=== PATIENT | female | born 1950 | race Caucasian/White ===

== ENCOUNTER → 2017-07-10 | Outpatient (CLI) | payer OTHER ==
[~2017-07-10] VITALS: Ht 153.7 cm; Wt 60.0 kg
[~2017-07-10] MED LIST: CALCIUM 500 MG1 EACH PO; DITROPAN5 MG PO; VITAMIN D2000 UNI1 PO
[2017-07-10 16:00] VITALS: BP 121/77
== END | disposition home or self-care (01) ==
LOC: IVINF 15:45
DX: M81.0 Age-related osteoporosis without current pathological fracture (principal)
CPT/HCPCS: 96365; J3489

== ENCOUNTER → 2018-07-10 | Outpatient (CLI) | payer OTHER ==
[~2018-07-10] VITALS: Ht 154.9 cm; Wt 61.2 kg
[2018-07-10 07:25] VITALS: BP 131/73
== END | disposition home or self-care (01) ==
LOC: IVINF 06-18 15:00
DX: M81.0 Age-related osteoporosis without current pathological fracture (principal)
CPT/HCPCS: 96365; J3489